=== PATIENT | male | born 1960 | race Native Hawaiian/Other Pacific Islander ===

== ENCOUNTER 2020-09-24 09:20 | Outpatient (CLI) | payer OTHER | END 2020-09-24 20:25 | disposition home or self-care (01) | LOC: RAD 09:20 | PROVIDERS: ATTEND Nurse Practitioner Family | DX: M54.5 Low back pain (principal); M25.552 Pain in left hip; M25.551 Pain in right hip ==

== ENCOUNTER 2020-12-23 09:35 | Outpatient (CLI) | payer OTHER | END 2020-12-23 14:41 | disposition home or self-care (01) | LOC: RAD 09:35 | PROVIDERS: ATTEND Nurse Practitioner Family | DX: M54.5 Low back pain (principal) ==

== ENCOUNTER 2021-01-13 08:00 | Outpatient (CLI) | payer OTHER | END 2021-01-13 19:03 | disposition home or self-care (01) | LOC: CT 08:00 | PROVIDERS: ATTEND Nurse Practitioner Family | DX: M19.90 Unspecified osteoarthritis, unspecified site (principal); M54.5 Low back pain | CPT/HCPCS: 36415; 82565; 84520; Q9963 ==

== ENCOUNTER 2022-03-30 08:27 | Outpatient (CLI) | payer OTHER | END 2022-03-30 19:08 | disposition home or self-care (01) | LOC: US 08:27 | PROVIDERS: ATTEND Nurse Practitioner Family | DX: R74.8 Abnormal levels of other serum enzymes (principal) ==

== ENCOUNTER 2022-05-26 07:42 | Outpatient (CLI) | payer OTHER | END 2022-05-26 19:23 | disposition home or self-care (01) | LOC: NM 07:42 | PROVIDERS: ATTEND Nurse Practitioner Family | DX: R93.89 Abnormal findings on diagnostic imaging of other specified body structures (principal); K80.20 Calculus of gallbladder without cholecystitis without obstruction; K82.8 Other specified diseases of gallbladder | CPT/HCPCS: A9537 ==